=== PATIENT | female | born 1975 | race Caucasian/White ===

== ENCOUNTER 2021-01-16 02:16 | Emergency (ER) | payer MEDICARE, MEDICAID ==
[~2021-01-16] VITALS: Ht 154.9 cm; Wt 77.1 kg
[~2021-01-16 02:16] MED LIST: ADVIL100 M2 PO; ATIVAN0.5 MG PO; CLONIDINE0.1 PO; CYMBALTA30 MG PO; CYMBALTA60 MG PO; LYRICA 75 MG CA75 MG PO; METHADONE HCL 110 M1 PO; NEW BP MED; NEXIUM40 MG PO; OXYCODON-ACETA1 EAC1 PO; SEROQUEL200 MG PO; SPIRONOLACT/HC1 EACH PO; ZANAFLEX4 M1 PO
[2021-01-16] MEDS ORDERED: EFFEXOR XR150 MG PO (02:53)
[2021-01-16] MEDS ORDERED: REXULTI0.25 MG PO (02:56)
[2021-01-16 02:59] LABS: HEMATOCRIT 43.8 % (37.0-47.0); HEMOGLOBIN 14.9 gm/dL (12.0-15.0); MCH 31.7 pg (26.0-34.0); MCHC 33.9 g/dL (28.0-37.0); MCV 93.4 fL (80.0-100.0); MPV 8.1 fl. (7.2-11.1); RBC 4.69 mil/uL (4.20-5.00); RDW-CV 14.2 % (10.5-14.5); WBC 9.1 thou/uL (4.0-11.0)
[2021-01-16 03:09] LABS: CALCIUM 8.9 mg/dL (8.5-10.1); CREATININE 0.9 mg/dL (0.6-1.3); POTASSIUM 3.8 mmol/L (3.5-5.1)
[2021-01-16 03:13] LABS: TOTAL BILIRUBIN 0.3 mg/dL (<0.1-1.0); TOTAL PROTEIN 7.9 g/dL (6.4-8.2)
[2021-01-16 03:43] LABS: SALICYLATE < 2.8 mg/dL (2.8-20.0)
[2021-01-16 03:46] LABS: ACETAMINOPHEN < 2 ug/mL (10-30)
[2021-01-16 05:21] VITALS: BP 111/72
== END 2021-01-16 05:23 | disposition home or self-care (01) ==
LOC: M.ERS 02:16
PROVIDERS: Personal Emergency Response Attendant
DX: K51.90 Ulcerative colitis, unspecified, without complications (principal); R10.84 Generalized abdominal pain; R11.2 Nausea with vomiting, unspecified; Z79.899 Other long term (current) drug therapy; Z88.2 Allergy status to sulfonamides; Z88.8 Allergy status to other drugs, medicaments and biological substances

== ENCOUNTER 2021-01-31 05:11 | Emergency (ER) | payer MEDICARE, MEDICAID ==
[~2021-01-31] VITALS: Ht 154.9 cm; Wt 72.6 kg
[~2021-01-31 05:11] MED LIST changes: +EFFEXOR XR150 MG PO; +REXULTI0.25 MG PO
[2021-01-31] MEDS ORDERED: PERCOCET 10-321 EAC1 PO (05:34)
[2021-01-31 05:51] LABS: HEMATOCRIT 40.8 % (37.0-47.0); HEMOGLOBIN 13.9 gm/dL (12.0-15.0); MCH 31.3 pg (26.0-34.0); MCHC 34.1 g/dL (28.0-37.0); MCV 91.9 fL (80.0-100.0); MPV 7.7 fl. (7.2-11.1); RBC 4.44 mil/uL (4.20-5.00); WBC 7.9 thou/uL (4.0-11.0)
[2021-01-31 06:02] LABS: CALCIUM 9.2 mg/dL (8.5-10.1); CREATININE 0.7 mg/dL (0.6-1.3); POTASSIUM 3.8 mmol/L (3.5-5.1)
[2021-01-31 06:06] LABS: ALBUMIN 3.4 g/dL (3.4-5.0); TOTAL BILIRUBIN 0.4 mg/dL (<0.1-1.0)
[2021-01-31 06:14] LABS: URINE BILIRUBIN NEGATIVE (Negative); URINE BLOOD TRACE (Negative); URINE CLARITY CLEAR; URINE COLOR YELLOW; URINE GLUCOSE-RANDOM NEGATIVE (Negative); URINE KETONES 1+ (Negative); URINE LEUKOCYTES-REFLEX NEGATIVE (Negative); URINE NITRITE-REFLEX NEGATIVE (Negative); URINE PROTEIN NEGATIVE (Negative); URINE UROBILINOGEN 0.2 E.U./dl (0.2-1.0)
[2021-01-31 06:15] LABS: AMP/METHAMP Negative (Negative); BARBITURATES Negative (Negative); BENZODIAZEPINES Negative (Negative); COCAINE Negative (Negative); METHADONE Negative (Negative); OPIATES Negative (Negative); PCP Negative (Negative); THC Negative (Negative)
[2021-01-31 07:00] VITALS: BP 139/88
--- NOTE | 2021-01-31 09:33 | EKG ---
[place] [address] ELECTROCARDIOGRAM REPORT Name: GIACOMO BIRCH Room: [facility]#: [id number] Admission: 01/31/21 Attend Phys: Discharge: 01/31/21 Date of : 73 Date of Service: 01/31/21514 Report #: [id number] THIS REPORT FOR: //name// [facility] ED Test Date: 2021-01-31 Test Time: 05:15:57 Pat Name: GIACOMO BIRCH Department: Room: Gender: Relief Man: [place] : 1975 Requested By: Ely Singleton Order Number: [id number] MD: Thang Tavares Measurements Intervals [place] Rate: 117 P: 71 WI: 154 QRS: 52 QRSD: 88 T: 0 QT: 306 QTc: 427 Interpretive Statements Sinus tachycardia Borderline T abnormalities, inferior leads No previous ECG available for comparison Electronically Signed On 01-31-2021 9:33:34 [employer] by Thang Tavares [email or web address] <ELECTRONICALLY SIGNED> By: Thang Tavares MD, [facility] 01/31/2133 4 4 Thang Tavares MD, FACC /EPI
== END 2021-01-31 07:00 | disposition home or self-care (01) ==
LOC: M.ERS 05:11
PROVIDERS: Personal Emergency Response Attendant
DX: G89.29 Other chronic pain (principal); R10.9 Unspecified abdominal pain; R11.0 Nausea; K21.9 Gastro-esophageal reflux disease without esophagitis; M79.7 Fibromyalgia; Z79.891 Long term (current) use of opiate analgesic; Z79.899 Other long term (current) drug therapy; Z88.6 Allergy status to analgesic agent; Z88.1 Allergy status to other antibiotic agents; Z88.5 Allergy status to narcotic agent; Z88.2 Allergy status to sulfonamides; Z88.8 Allergy status to other drugs, medicaments and biological substances

== ENCOUNTER 2021-04-21 03:57 | Emergency (ER) | payer MEDICARE, MEDICAID ==
[~2021-04-21] VITALS: Ht 154.9 cm; Wt 77.1 kg
[~2021-04-21 03:57] MED LIST changes: +PERCOCET 10-321 EAC1 PO
[2021-04-21] MEDS ORDERED: CRYSELLE1 EACH PO (04:14)
[2021-04-21 05:11] LABS: ABSOLUTE BASOPHILS 0.1 thou/uL (0.0-0.2); ABSOLUTE EOSINOPHILS 0.2 thou/uL (0.0-0.7); ABSOLUTE LYMPHOCYTES 3.3 thou/uL (0.8-5.3); ABSOLUTE MONOCYTES 0.7 thou/uL (0.0-1.2); BASOPHILS 0.8 %; EOSINOPHILS 2.4 %; HEMATOCRIT 38.7 % (37.0-47.0); LYMPHOCYTES 35.8 %; MCH 30.8 pg (26.0-34.0); MCHC 33.5 g/dL (28.0-37.0); MONOCYTES 7.2 %; MPV 8.5 fl. (7.2-11.1); NUCLEATED RBCS 0 /100WBC; PLATELET COUNT* 320 thou/uL (150-400); POLYS 53.8 %; WBC 9.3 thou/uL (4.0-11.0)
[2021-04-21 05:29] LABS: CALCIUM 8.5 mg/dL (8.5-10.1); CREATININE 0.9 mg/dL (0.6-1.3); POTASSIUM 3.5 mmol/L (3.5-5.1)
[2021-04-21 05:33] LABS: ALBUMIN 3.4 g/dL (3.4-5.0); TOTAL BILIRUBIN 0.3 mg/dL (<0.1-1.0); TOTAL PROTEIN 6.9 g/dL (6.4-8.2)
[2021-04-21] MEDS ORDERED: ZOFRAN ODT4 MG PO (07:05)
[2021-04-21 07:17] VITALS: BP 132/95
--- NOTE | 2021-04-22 10:54 | EKG ---
[place] [address] ELECTROCARDIOGRAM REPORT Name: GIACOMO BIRCH Room: [facility]#: [id number] Admission: 04/21/21 Attend Phys: Discharge: 04/21/21 Date of : 73 Date of Service: 04/21/21 0411 Report #: [id number] THIS REPORT FOR: //name// [facility] ED Test Date: 2021-04-21 Test Time: 04:11:42 Pat Name: GIACOMO BIRCH Department: Room: Gender: F Anesthesiologist/Physician: : 1975 Requested By: Dang Chacon Order Number: [id number] MD: Shane Medeiros Measurements Intervals [place] Rate: 88 P: 71 DE: 144 QRS: 62 QRSD: 87 T: 40 QT: 356 QTc: 431 Interpretive Statements Sinus rhythm Abnormal R-wave progression, early transition Compared to ECG 01/31/2021 05:15:57 Sinus tachycardia no longer present T-wave abnormality no longer present Electronically Signed On 04-22-2021 10:54:05 [employer] by Shane Medeiros [email or web address] <ELECTRONICALLY SIGNED> By: Shane Medeiros MD, [facility] 04/22/21 1054 0411 0411 Shane Medeiros MD, [facility] /EPI
== END 2021-04-21 07:17 | disposition home or self-care (01) ==
LOC: M.ERS 03:57
PROVIDERS: Emergency Medicine
DX: R10.13 Epigastric pain (principal); R10.33 Periumbilical pain; R11.2 Nausea with vomiting, unspecified; R19.7 Diarrhea, unspecified; K21.9 Gastro-esophageal reflux disease without esophagitis; M79.7 Fibromyalgia; Z79.899 Other long term (current) drug therapy; Z88.8 Allergy status to other drugs, medicaments and biological substances; Z88.2 Allergy status to sulfonamides